=== PATIENT | female | born 1945 | race Caucasian/White ===

== ENCOUNTER 2023-01-11 11:51 | Day surgery (SDC) | payer OTHER ==
[~2023-01-11] VITALS: Ht 167.6 cm; Wt 81.9 kg
[~2023-01-11 11:51] MED LIST: AMLO1TAB24 PO; BENZ-18 PO; CALC500T52 PO; ELIQ5TAB PO; FLUT1BLS8 INH; FURO20TA2 PO; LIDOCAINE 2% 100MG/5ML SDV (FOR ANES.) As Ordered ONE; MEPO100A SC; METO1TAB32 PO; OMEP-173 PO; OXYC20TA40 PO; PARO25TA11 PO; RAMI1CAP22 PO; ROSU5TAB5 PO; propofoL 200 MG/20 ML VIAL As Ordered ONE
[2023-01-11] MEDS ORDERED: fentaNYL 100 MCG/2 ML INJECTION As Ordered ONE (12:39)
[2023-01-11 14:14] VITALS: BP 152/69; O2SAT 96
== END 2023-01-11 14:26 | disposition home or self-care (01) ==
LOC: M OPP 11:51
PROVIDERS: ATTEND Internal Medicine Gastroenterology
DX: Z12.11 Encounter for screening for malignant neoplasm of colon (principal); D12.6 Benign neoplasm of colon, unspecified; K64.8 Other hemorrhoids; K64.4 Residual hemorrhoidal skin tags; K62.5 Hemorrhage of anus and rectum; K44.9 Diaphragmatic hernia without obstruction or gangrene; K29.70 Gastritis, unspecified, without bleeding; K22.89 Other specified disease of esophagus; G47.30 Sleep apnea, unspecified; Z79.01 Long term (current) use of anticoagulants; Z79.02 Long term (current) use of antithrombotics/antiplatelets; Z79.51 Long term (current) use of inhaled steroids; Z79.891 Long term (current) use of opiate analgesic; Z79.899 Other long term (current) drug therapy
CPT/HCPCS: 43239; 45385; 88305; J3010